=== PATIENT | male | born 1945 | race Caucasian/White ===

== ENCOUNTER → 2016-07-18 | Outpatient (REF) | payer MEDICARE, OTHER | END | disposition home or self-care (01) | LOC: M LAB REF 13:02 | PROVIDERS: ATTEND Internal Medicine Medical Oncology | DX: C02.9 Malignant neoplasm of tongue, unspecified (principal); C78.01 Secondary malignant neoplasm of right lung; Z79.899 Other long term (current) drug therapy ==

== ENCOUNTER → 2016-10-07 | Outpatient (CLI) | payer MEDICARE, BC, OTHER ==
[2016-10-07 11:28] LABS: ANION GAP 6 MEQ/L (8-16); BLOOD UREA NITROGEN 19 MG/DL (7-18); CALCIUM LEVEL 9.3 MG/DL (8.8-10.2); CARBON DIOXIDE LEVEL 30 MEQ/L (21-32); CHLORIDE LEVEL 104 MEQ/L (98-107); CREATININE FOR GFR 0.97 MG/DL (0.70-1.30); GLOMERULAR FILTRATION RATE > 60.0 (>42); GLUCOSE, FASTING 142 MG/DL (83-110); POTASSIUM SERUM 4.4 MEQ/L (3.5-5.1); SODIUM LEVEL 140 MEQ/L (136-145)
--- NOTE | 2016-10-07 22:55 | ECGEPIP ---
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 NO SIGNIFICANT CHANGES Electronically Signed On 10-07-2016 22:55:26 EDT by David Montes
== END ==
LOC: M LAB 10:42
PROVIDERS: ATTEND Ophthalmology
DX: I10 Essential (primary) hypertension (principal)

== ENCOUNTER → 2016-10-09 | Outpatient (REF) | payer MEDICARE, BC, OTHER | LOC: M LAB REF 13:20 | PROVIDERS: ATTEND Internal Medicine Medical Oncology | DX: C02.9 Malignant neoplasm of tongue, unspecified (principal); C78.00 Secondary malignant neoplasm of unspecified lung; Z79.899 Other long term (current) drug therapy ==

== ENCOUNTER → 2016-10-11 | Outpatient (CLI) | payer MEDICARE, BC, OTHER ==
[~2016-10-11] MED LIST: ISOVUE-370 76% 100ML VIAL (Q9967) As Ordered ONE
--- NOTE | 2016-10-11 13:30 | REP ---
CT NECK WITH CONTRAST: HISTORY: Lung carcinoma. CONTRAST: Isovue 370, 75 mL. COMPARISON: 03/21/2015. Increased density is present in the retropharyngeal and pre-epiglottic spaces. There is minimal thickening of the epiglottic and aryepiglottic folds. Stranding is present in the overlying subcutaneous tissue. These findings are consistent with postradiation change that are decreased compared to the previous study. There is no recurrent mass in the region of the left tongue base. The nasopharynx, larynx and subglottic trachea are normal in appearance. The salivary and thyroid glands are normal. Small lymph nodes less than 1 cm in size are present in the internal jugular chains, posterior triangles, submandibular and submental areas. Atherosclerotic calcification is present at the carotid bifurcations. Degenerative change is present in the cervical spine. Scarring is present in the right lung apex. The visualized sinuses are clear. IMPRESSION: 1. There is no recurrent tongue base tumor. 2. Findings consistent with postradiation change that are decreased compared to the previous study. Signed by Claude Longo MD 10/11/2016 01:39 P
--- NOTE | 2016-10-11 17:54 | REP ---
CT CHEST WITH CONTRAST: REASON: History of lung cancer. COMPARISON: Multiple, the latest 06/06/2016. CONTRAST: 100 mL Isovue-370. There is no mediastinal or hilar adenopathy. There are no pleural or pericardial effusions. The imaged upper abdomen is within normal limits. The imaged osseous structures appear unchanged. Evaluation of the lung conde shows an eccentrically calcified spiculated mass density in the right middle lobe. The soft tissue component of which has increased from 4 mm to 6 mm. There is a surgical staple line adjacent to this abnormality. Basilar asymmetric densities are seen status quo. No evidence of a definite new nodule has developed. There are postoperative changes status quo. IMPRESSION: Increased soft-tissue density component seen and an eccentrically calcified nodule right middle lobe as described above. Recurrent malignancy can not be ruled out. PET CT is warranted. Signed by Joshua Cruz DO 10/11/2016 06:01 P
== END ==
LOC: M RAD 12:03
PROVIDERS: ATTEND Internal Medicine Medical Oncology
DX: C34.90 Malignant neoplasm of unspecified part of unspecified bronchus or lung (principal); C79.89 Secondary malignant neoplasm of other specified sites; R91.8 Other nonspecific abnormal finding of lung field; Z92.3 Personal history of irradiation
CPT/HCPCS: 70491; 71260; Q9967

== ENCOUNTER 2016-10-26 06:41 | Day surgery (SDC) | payer MEDICARE, BC, OTHER ==
[~2016-10-26] VITALS: Ht 182.9 cm; Wt 80.0 kg
[2016-10-26] VITALS (7 sets, daily range): BP systolic 103–167; BP diastolic 59–94
[2016-10-26] MEDS ORDERED: CHLO0.12 SSP (07:10)
[2016-10-26] MEDS ORDERED: PREVPST MT (07:10)
[2016-10-26] MEDS ORDERED: OMEP40CA2 PO (07:10)
[2016-10-26] MEDS ORDERED: FLUO-144 TOP (07:10)
[2016-10-26] MEDS ORDERED: DUTA1CAP PO (07:10)
[2016-10-26] MEDS ORDERED: NS 1,000 ML IV SCH (07:51)
--- NOTE | 2016-10-26 08:32 | REP ---
Clinical: Chest pain. Comparison: 04/17/2015. Findings: Mediastinum and cardiac silhouette are within normal limits. Trace right basilar atelectasis cannot be excluded. Underlying chronic changes suggested. Impression: Trace right basilar atelectasis and small pleural effusion cannot be excluded. Signed by Prudencio Donnelly MD 10/26/2016 08:22 A
[2016-10-26] MEDS ORDERED: LATA5OPD OU (08:39)
[2016-10-26 08:43] LABS: BASO % 0.6 % (0.0-1.0); EOS # 0.2 K/mm3 (0.0-0.50); EOS % 3.2 % (0.0-3.0); LARGE UNSTAINED CELL # 0.1 K/mm3 (0.0-0.4); LARGE UNSTAINED CELL % 1.5 % (0.0-4.0); LYMPH # 0.9 K/mm3 (1.5-4.5); LYMPH % 16.4 % (24.0-44.0); MEAN CORPUSCULAR HEMOGLOBIN 33.9 pg (27.0-33.0); MEAN CORPUSCULAR HGB CONC 34.1 g/dl (32.0-36.5); MEAN CORPUSCULAR VOLUME 99.3 fl (80.0-96.0); MONO # 0.4 K/mm3 (0.0-0.8); MONO % 8.5 % (0.0-5.0); NEUTROPHILS # 3.4 K/mm3 (1.8-7.7); NEUTROPHILS % 69.8 % (36.0-66.0); PLATELET COUNT, AUTOMATED 150 k/mm3 (150-450); RED CELL DISTRIBUTION WIDTH 12.6 % (11.5-14.5); WHITE BLOOD COUNT 4.8 K/mm3 (4.0-10.0)
[2016-10-26] MEDS ORDERED: LR 1,000 ML IV SCH ×2 (08:45→13:00)
[2016-10-26 08:49] LABS: INR 0.96
[2016-10-26 08:54] LABS: ANION GAP 6 MEQ/L (8-16); BLOOD UREA NITROGEN 16 MG/DL (7-18); CALCIUM LEVEL 8.7 MG/DL (8.8-10.2); CARBON DIOXIDE LEVEL 30 MEQ/L (21-32); CHLORIDE LEVEL 103 MEQ/L (98-107); CREATININE FOR GFR 0.93 MG/DL (0.70-1.30); GLOMERULAR FILTRATION RATE > 60.0 (>42); GLUCOSE, FASTING 137 MG/DL (83-110); POTASSIUM SERUM 4.3 MEQ/L (3.5-5.1); SODIUM LEVEL 139 MEQ/L (136-145)
[2016-10-26] MEDS ORDERED: LIDOCAINE 1% SDV INJ 30 ML VIAL As Ordered ONE (10:50)
[2016-10-26] MEDS ORDERED: ceFAZolin 2 GM/D5W 50 ML IV BAG (J0690) As Ordered ONE (11:31)
[2016-10-26] MEDS ORDERED: MIDAZOLAM INJ 2 MG/2 ML VIAL (J2250) As Ordered ONE (11:36)
[2016-10-26] MEDS ORDERED: fentaNYL 100 MCG/2 ML INJECTION (J3010) As Ordered ONE (11:36)
[2016-10-26] MEDS ORDERED: PROPOFOL 200 MG/20 ML VIAL As Ordered ONE (11:37)
[2016-10-26] MEDS ORDERED: LIDOCAINE 2% INJ 100 MG/5 ML SDV (FOR ANES.) As Ordered ONE (11:37)
--- NOTE | 2016-10-26 12:00 | ER ---
EMERGENCY ROOM CARDIOLOGY CONSULTATION DATE: 10/26/2016 INDICATION: History of weak spells with event patient monitor showing recurrent pauses. 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 Yesterday he mowed the lawn with a push mower for along half an hour without chest discomfort, shortness of breath, fatigue or dizziness. However, according to his , he has been having episodic profound weakness and was referred to Dr. Montes. His EKG prior to recent cataract extraction, April 20, 2015 showed a sinus bradycardia with marked first-degree AV block of 292 milliseconds. In light of these symptoms and his EKG, an event monitor was placed this past week. I was covering for Dr. Montes and the event monitor service contacted me with a report of the patient having a recurrent prolonged asystolic pauses measuring between 3 and 6.5 seconds. In light of this, the patient was directed to the emergency room for further evaluation. Interestingly, at this point he feels asymptomatic even with his EKG bedside monitor showing rates in the 40s with recurrent asystolic pauses as mentioned above. He has no history of cardiovascular illness, otherwise - in particular, no angina pectoris, heart attack, cardiac enlargement or heart murmur. Had been treated for hypertension in the past but this was discontinued with blood pressure dropping with substantial weight loss with chemotherapy administered for tongue cancer with metastatic disease. Also had a history of hypercholesterolemia, which he claims also improved with his substantial weight loss. He has never had an awareness of his heart action. Denies ever having actual loss of consciousness. No history of shortness of breath. Typically sleeps well without apnea. No history to suggest embolic phenomenon or claudication. No known peripheral venous disease. CORONARY RISK FACTORS: Male gender. Age. History of longstanding hypertension and prior hypercholesterolemia. Life-long nonsmoker. No history of diabetes mellitus or family history of premature coronary heart disease. OTHER KNOWN PAST MEDICAL PROBLEMS: Right ankle fracture repair 1979. Lupus erythematosus 2008 Rx Imuran in the past. Back surgery 2013. 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 05/22 Feeding gastrotomy tube temporarily. Lung wedge resections, [facility] 01/22. Followed by Dr. Burkett, oncology. History of gastroesophageal reflux disease. Benign prostatic hypertrophy with prostatism post TURP 2000. Prior hemorrhoids. Psoriasis. REVIEW OF SYSTEMS: Denies any fever, chills or recent weight loss. No visual problems or hearing problems. Currently is able to swallow normally, his feeding tube was removed sometime ago. No known thyroid dysfunction or other endocrine disorder. Denies cough, sputum or hemoptysis. His metastatic tumor to his lung was a solitary nodule with recent neck and chest CT scanning apparently negative for recurrent disease. Intermittent heartburn and reflux but no other abdominal pains, gastrointestinal (GI) bleeding. Some prostatism but no current hematuria. Shoulder arthralgia. All other systems review is negative. MEDICATIONS: Omeprazole 40 mg daily, multivitamin, vitamin C 1000 mg daily, multivitamin daily. Osteo complex 1 capsule daily, fish oil 1 gram daily, fluocinonide 0.05% cream externally as directed. Chlorhexidine gluconate oral solution 15 mL twice a day as needed gum disease, dutasteride 0.5 mg by mouth daily, latanoprost eye drops 1 drop each eye nightly and Prevident 5000 enamel Pro 1.1 - 5% one dose twice a day. ALLERGIES: None known. PHYSICAL EXAMINATION: CONSTITUTIONAL: Pleasant, bright, alert, well tanned elderly male laying comfortably with the head of bed elevated 30 degrees. Heart rate 48 beats per minute and irregular with prolonged pauses as mentioned. Supine blood pressure 157/88, respiratory 16 per minute, O2 saturation 99% on room air. Afebrile. Height 72 inches, weight 81 kg, body surface area 2.04. EYES: Normal conjunctivae and lids. No xanthelasma. ENT/MOUTH: Teeth in good repair at this time. Normal oral moisture. NECK: Trachea midline. Thyroid not enlarged. Jugular veins were not elevated. CHEST: Normal-appearing chest configuration and chest expansion. Good air entry over both lung conde with no adventitious sounds. CARDIOVASCULAR: Apical impulse medial to the midclavicular line fifth intercostal space. S1, S2 were variable, variable S4 gallop. No audible murmur or rub. Normal carotid upstroke with variable volume related to his arrhythmia. No bruits. Upper extremity, femoral and pedal pulses were all symmetrical and normal. No bipedal edema. No varicose veins. Abdominal aorta was not palpable. No bruits. EXTREMITIES: No clubbing. Peripheral cyanosis or splinter hemorrhages. GI: Well-healed gastric feeding tube scar left upper quadrant. Soft abdomen with no hepatosplenomegaly. Normal bowel sounds. Rectal examination not indicated. MUSCULOSKELETAL: No obvious joint deformities. Normal appearing muscular strength and tone. NEURO/PSYCH: Bright, alert and oriented. Gave a lucid history. Eye, facial, extremity movements were symmetrical and normal. Gait was not assessed at this time. No abnormal movements. INVESTIGATIONS: Portable upright chest x-ray was reviewed independently and shows a heart size within normal limits for this technique. Normal thoracic aorta. Pulmonary vasculature also appeared to be normal. Has no evidence of pleural effusion. Right basilar atelectasis apparently not significantly changed from April 17, 2015. Chest CT scan with contrast October 11, 2016 was reviewed independently and showed normal greater vessels and cardiac chamber sizes and wall thickness. No obvious coronary artery calcification. Electrocardiogram (EKG): Last study available October 07, 2016 showed sinus bradycardia 58 bpm with marked first-degree AV block but was otherwise normal. EKG today did not show any repolarization changes. Bedside monitor shows intermittent sinus pauses measuring between 4 and 6 seconds. Blood work today: Hemoglobin 16.5 with normal white blood cell count and platelet count. PT/INR was 12.9 and 0.98. Normal PTT. Chemistry today showed electrolyte balance with BUN of 16, creatinine 0.9, random glucose 137, magnesium level was normal at 2.1. Troponin I level was less than 0.02. Ultrasensitive TSH done October 09, 2016 was normal. IMPRESSION AND PLAN: 1. Recurrent near syncope: From his description and his EKG findings I suspect this symptom is related to bradyarrhythmia. We have documentation of sinus node dysfunction but no high-grade AV block despite his marked first-degree AV block at rest. 2. Sinus node dysfunction/recurrent sinus pauses: Believed to be a reflection of degenerative conduction tissue disease. No potentially reversible precipitating factor. We have recommended permanent pacemaker implantation. The indication, procedure and potential risks were discussed with the patient who appears to understand and agree. Will proceed as soon as possible under monitored local anesthesia. 3. A first-degree AV block: As mentioned above the condition has been present for some time again believed to be degenerative in nature with no documentation of high-grade AV block to this point. Obviously, permanent pacemaker implantation will prevent him from having any symptomatic AV conduction problems in the future. 4. Essential hypertension: A condition of some chronicity without evidence of end-organ damage. No clinical, radiographic or chest x-ray evidence of cardiomegaly. Following his permanent pacemaker implantation, we will deal with his blood pressure by likely introducing at least low-dose lisinopril. 5. History of hyperlipidemia: We will obtain a fasting lipid profile from his blood work taken earlier today. At this point, no more than a low-fat, low-cholesterol diet will be ordered pending his chemistry results. 6. Metastatic oral pharyngeal cancer: Status post radiation therapy, chemotherapy and wedge pulmonary resection of isolated metastasis. To present there does not appear to be any clinical or radiographic evidence of recurrent disease. Continues to follow with Dr. Burkett, oncology. We made arrangements to proceed with and implantation of his permanent dual-chamber pacemaker as quickly as possible under monitored local anesthesia. He should be able to be discharged home tomorrow. I will be notifying Dr. Montes of his course. Thank you, cc: MD David Torres MD MTDD
[2016-10-26 12:58] LABS: ALBUMIN 3.9 GM/DL (3.2-5.2); ALBUMIN/GLOBULIN RATIO 1.11 (1.00-1.93); ALKALINE PHOSPHATASE 59 U/L (45-117); ALT/SGPT 33 U/L (12-78); AST/SGOT 20 U/L (15-37); BILIRUBIN,DIRECT 0.2 MG/DL (0.0-0.2); BILIRUBIN,TOTAL 0.6 MG/DL (0.2-1.0); CHOLESTEROL LEVEL 215 MG/DL (<200); TOTAL PROTEIN 7.4 GM/DL (6.4-8.2); TRIGLYCERIDES LEVEL 115 MG/DL (<150)
[2016-10-26] MEDS: LISINOPRIL 10 MG TAB PO SCH ×2 (13:00→20:35)
[2016-10-26] MEDS ORDERED: ONDANSETRON 4MG/2ML VIAL (J2405) IV PRN (13:00)
[2016-10-26] MEDS ORDERED: ACETAMINOPH W/CODEINE #3 TAB UD PO PRN (13:00)
--- NOTE | 2016-10-26 13:08 | REP ---
Clinical: Postoperative assessment. Pacemaker placement. Comparison: 10/26/2016. Findings: Status post pacemaker. Leads in satisfactory position. No pneumothorax. Pleuroparenchymal changes involving the right lower lung zone stable. No new acute process. Mediastinum and cardiac silhouette normal. Skeletal structures intact. Impression: Status post pacemaker. No pneumothorax. Chronic pleuroparenchymal changes involving the right mid to lower lung zone. Signed by Prudencio Donnelly MD 10/26/2016 12:58 P
[2016-10-26] MEDS: ACETAMINOPHEN TAB 650MG DOSE (2X325MG) PO PRN ×2 (15:14→20:38)
--- NOTE | 2016-10-26 15:17 | ECGEPIP ---
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
[2016-10-26] MEDS: DOCUSATE SODIUM 100 MG CAP PO SCH (20:35)
[2016-10-26] MEDS: ceFAZolin SOD 1 GM in D5W MINI-BAG PLUS 50 ML IV SCH (20:35)
[2016-10-27] VITALS: BP 117/67
[2016-10-27 04:00] VITALS: BP 126/72
[2016-10-27] MEDS: ceFAZolin SOD 1 GM in D5W MINI-BAG PLUS 50 ML IV SCH (04:02)
[2016-10-27 08:00] VITALS: BP 136/67
--- NOTE | 2016-10-27 08:04 | ECGEPIP ---
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
[2016-10-27] MEDS ORDERED: OMEPRAZOLE 20 MG CAP PO SCH (09:00)
[2016-10-27] MEDS: DOCUSATE SODIUM 100 MG CAP PO SCH (09:03)
[2016-10-27 09:06] VITALS: BP 132/69
[2016-10-27] MEDS: LISINOPRIL 10 MG TAB PO SCH (09:06)
[2016-10-27] MEDS: ACETAMINOPHEN TAB 650MG DOSE (2X325MG) PO PRN (09:07)
--- NOTE | 2016-10-27 10:07 | REP ---
Clinical: Postoperative assessment. Pacemaker placement. Comparison: 10/26/2016. Findings: Pacemaker in stable position. No pneumothorax. Lung cnode demonstrate chronic changes similar to prior examination. Mediastinum and cardiac silhouette are stable and within normal limits. Skeletal structures intact. Impression: Chronic stable changes. No pneumothorax. Signed by Prudencio Donnelly MD 10/27/2016 09:58 A
[2016-10-27] MEDS ORDERED: LISI10TA4 PO (11:43)
[2016-10-27] MEDS ORDERED: ATOR40TA PO (11:43)
--- NOTE | 2016-10-27 11:54 | IPN ---
DATE: 10/27/2016 CARDIOLOGY PROGRESS NOTE SUBJECTIVE: Claims not to have had much in the way of incisional discomfort overnight. Has been up in the room without chest discomfort, shortness of breath or dizziness. OBJECTIVE: Pleasant, bright, elderly male of medium body build, lay comfortably with the head of bed elevated 30 degrees. Well tanned. Heart rate 60 beats per minute and regular, blood pressure 150/80 supine, 145/80 sitting with legs dependent, respiratory rate 16 per minute, oxygen saturation 98% on room air. Afebrile. Weight 176 pounds. No pallor or cyanosis. Trachea midline. Normal chest configuration and expansion. Well-healing left subclavian pacemaker incision, dressing was changed today. Good air entry over both lung conde with no abnormal pulmonary adventitious sounds. Apical impulse normal position. S1 normal, S2 paradoxically split due to right ventricular pacing, S4 gallop but no murmur or rub. Soft abdomen. No dependent edema. court recording monitor: This has shown consistent dual-chamber pacer function programmed DDD with atrial pacing, alternating with spontaneous sinus rhythm that is sensed, appropriate atrial tracking and consistent ventricular pacing. EKG: Tracing this morning shows consistent atrial and ventricular pacing at 60 beats per minute. Normal frontal axis with left bundle branch block, QRS configuration in keeping with right ventricular RV outflow tract stimulation. Appearance is unchanged from yesterday's tracing postoperatively. PA left lateral chest x-ray: Study performed this morning was reviewed independently and shows a stable lead position with no pneumothorax. LABORATORY DATA: We added a fasting lipid profile to his blood work yesterday, which showed a total cholesterol of 215, LDL of 149, HDL 43, triglyceride 115. Liver function studies were normal. IMPRESSION/PLAN: 1. Essential hypertension: Though he has no symptoms or signs of congestion, no EKG or chest x-ray evidence of hypertensive heart disease, his blood pressure does warrant medical therapy. We have started him on low-dose lisinopril and dosage adjustment will be left to Dr. 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 2. Recurrent near syncope/sinus node dysfunction with sinus pauses: At present, has been free of any further dizzy spells or weakness. His pacemaker function is appropriate. EKG, chest x-ray show stable lead position. Complete pacer interrogation was performed today showing excellent intracardiac electrograms and pacing thresholds. We were able to reprogram his atrial auto confirm function on to further prolong battery longevity, which is estimated at this point at 11 years. 3. Abnormal EKG/first-degree AV block: Has had well documented marked first-degree AV block of 290 milliseconds. At this point, is consistently being paced in the ventricle without problem. 4. Hypercholesterolemia: Despite his medium body build and dietary measures and regular activity, continues to have a degree of hypercholesterolemia. We will resume atorvastatin 40 mg nightly. At this point, I believe it is safe for him to be discharged home. He will be given a followup appointment for wound check and staple removal in our office in approximately 7-10 days. He has been cautioned to avoid getting his incision wet and perform only light activities of daily living with his left arm until his latia are removed. Subsequent cardiology followup will be with Dr. Montes. His medications will include lisinopril 10 mg twice a day, omeprazole 40 mg nightly, atorvastatin 40 mg nightly. He will resume his vitamin C 8 one gram daily and multivitamin and Os-Bishnu Complex one tablet daily with fish oil 1 gram daily, fluocinonide 0.05% cream for his psoriasis as directed and dutasteride 0.5 mg daily with chlorhexidine gluconate oral wash 15 mL twice a day as necessary for gum disease. He has been encouraged to contact us promptly for any abnormal swelling, redness or discharge from his incision.
--- NOTE | 2016-10-27 19:49 | ECGEPIP ---
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
--- NOTE | 2016-10-28 07:42 | RO ---
DATE OF PROCEDURE: 10/26/2016 PREOPERATIVE DIAGNOSES: 1. Recurrent near syncope with recurrent prolonged sinus pauses - sinus node dysfunction. 2. First-degree AV block. POSTOPERATIVE DIAGNOSES: 1. Recurrent near syncope with recurrent prolonged sinus pauses - sinus node dysfunction. 2. First-degree AV block. PROCEDURE: Implantation of permanent dual-chamber pacemaker implant. TENTERER: Dr. Devante Rebolledo TYPE OF ANESTHESIA: Monitored local anesthesia. DESCRIPTION OF PROCEDURE: The patient in the fasting state, having received Ancef 2 grams IV premedication and signing informed consent, he was taken to the operating theater. Numerous skin electrodes were applied to facilitate continuous electrocardiographic monitoring. The left subclavian region was prepped and draped in usual fashion and the skin was infiltrated with 1% Xylocaine. The left axillary vein was catheterized using the micropuncture technique. A 5 cm linear incision was made several centimeters below and parallel to the left clavicle. Dissection was carried down to the level of the pectoralis fascia and a pocket was fashioned below the level of the incision line. Two bipolar screw-in active fixation steroid eluding pacing leads were then positioned to the high right atrial appendage and high right ventricular septum under fluoroscopic and electrocardiographic control. The ventricular lead ([employer] model #LPA 1200 M/580, serial #[id number]) measurements were: Stimulation threshold 0.5, V/0.4 mms/impedance 687 ohms. The capital R wave amplitude measured 8.1 mV. The atrial lead ([employer] - model [id number]/[id number], serial #[id number]). Measurements were: Stimulation threshold 1.57, V/0.4 mms/[id number] ohms. The P wave amplitude measured 2.2 mV. These leads were secured in position with sleeves sutured at their insertion site. They were then connected to a dual-chamber pulse generator ([employer] - [employer]urity model #QI3908 , serial #[id number] - MRI compatible) and appropriate DDD pacing was documented. The pulse generator was placed in the pocket and secured in position with a suture through the upper right-hand corner of the epoxy header. The subcutaneous tissues were approximated using a running chromic suture and the skin was closed using latia. A dry dressing was applied and the patient was returned to recovery room in good condition. No apparent complications. Estimated blood loss less than 50 small mL. Postoperative portable upright chest x-ray showed good lead position with no pneumothorax. His postoperative EKG showed consistent AV sequentially paced rhythm at 60 bpm. Our plan will be to monitor him overnight and he will receive an additional three doses of Ancef IV every 8 hours. Followup PA and left lateral chest x-ray and EKG will be obtained in the morning but we anticipate his discharge home prior to noon. cc: David Montes MD
[2016-11-19] MEDS ORDERED: [UNRECOGNIZED DRUG - OTHER] OS (16:52)
[2016-11-19] MEDS ORDERED: ALPH0.156 OU (16:52)
== END 2016-10-27 13:02 | disposition home or self-care (01) ==
LOC: M ED 08:31 → M SDC 08:32 → M PCU 13:33 → M SDC 10-27 13:02
PROVIDERS: ATTEND Internal Medicine Cardiovascular Disease
DX: R55 Syncope and collapse (principal); I49.5 Sick sinus syndrome; I44.0 Atrioventricular block, first degree; I10 Essential (primary) hypertension; K21.9 Gastro-esophageal reflux disease without esophagitis; R94.31 Abnormal electrocardiogram [ECG] [EKG]; Z86.39 Personal history of other endocrine, nutritional and metabolic disease; N40.0 Benign prostatic hyperplasia without lower urinary tract symptoms; L40.9 Psoriasis, unspecified; Z79.899 Other long term (current) drug therapy; Z85.118 Personal history of other malignant neoplasm of bronchus and lung; Z85.810 Personal history of malignant neoplasm of tongue; Z92.21 Personal history of antineoplastic chemotherapy; Z92.3 Personal history of irradiation
CPT/HCPCS: 33208; 71010; 71020; 76000; 80048; 80061; 80076; 82550; 82553; 83735; 84484; 85025; 85610; 85730; 93005; 93041; 94760; 96360; 96361; 96374; 99285; C1785; C1898; J0690; J2250; J3010

== ENCOUNTER → 2016-11-28 | Day surgery (SDC) | payer MEDICARE, BC, OTHER ==
[~2016-11-28] VITALS: Ht 182.9 cm; Wt 82.6 kg
[~2016-11-28] MED LIST changes: +ACETYLCHOLINE OPHTH SOLN 1% 2ML (MIOCHOL-E) As Ordered ONE; +ALPH0.156 OU; +ATOR40TA PO; +BALANCED SALT IRRIGATION SOL 500ML GLASS BOTTLE (FOR OR EYE COMPOUND) As Ordered ONE; +BALANCED SALT IRRIGATION SOLUTION 500ML BAG (FOR OR EYE MACHINE) As Ordered ONE; +CEFUROXIME 1MG/0.1ML INTRACAMERAL INJ As Ordered ONE; +CHLO0.12 SSP; +DUOVISC (0.50ML VISCOAT/0.55ML PROVISC) OPHTH KIT As Ordered ONE; +DUTA1CAP PO; +FLUO-144 TOP; -ISOVUE-370 76% 100ML VIAL (Q9967) As Ordered ONE; +LATA5OPD OU; +LIDOCAINE 0.75%/EPINEPHRINE 0.025% IN BSS 1ML SYR INTRACAMERAL (OR ONLY) As Ordered ONE; +LIDOCAINE 4% INJ 5 ML AMP As Ordered ONE; +LISI10TA4 PO; +LR 500 ML IV ONE; +MIDAZOLAM INJ 2 MG/2 ML VIAL (J2250) As Ordered ONE; +OFLOXACIN 0.3 % (OCUFLOX) OPTH SOL 5ML OD ONE; +OMEP40CA2 PO; +PHENYLEPHRINE 2.5% OPHTH SOL 2ML OD ONE; +POVIDONE-IODINE 5% OPHTH PREP SOL 30ML As Ordered ONE; +PREVPST MT; +PROPARACAINE 0.5% OPHTH SOL 15ML OD ONE; +TROPICAMIDE 1% OPHTH SOLN 2ML OD ONE; +[UNRECOGNIZED DRUG - OTHER] OS; +fentaNYL 100 MCG/2 ML INJECTION (J3010) As Ordered ONE
[2016-11-28 12:15] VITALS: BP 135/71
--- NOTE | 2016-11-29 12:23 | RO ---
DATE OF PROCEDURE: 11/28/2016 PREOPERATIVE DIAGNOSIS: Visually significant nuclear sclerotic cataract right eye. POSTOPERATIVE DIAGNOSIS: Visually significant nuclear sclerotic cataract right eye. PROCEDURE: Cataract extraction with use of phacoemulsification, and placement of intraocular lens, AU00T0, 21.0 diopter right eye. SURGEON: Robin Esparza DO [employer] OPERATOR: ANESTHESIA: Local with monitored anesthesia care (MAC). COMPLICATIONS: None. POSTOPERATIVE CONDITION: Stable. INDICATION FOR SURGERY: Blurred vision right eye affecting patient's activities of daily living. DESCRIPTION OF PROCEDURE: The patient was seen in the preoperative area and properly identified. The correct operative eye was identified and marked. Attention was turned to that eye. The patient received topical antibiotics in the preoperative area. The patient then received topical dilating drops consisting of Tropicamide and Phenylephrine. The patient was then transferred to the operating room. The correct side was re-identified. The patient received topical anesthetics and antibiotics on the surface of the eye. The eye was prepped and draped in a sterile fashion. The upper and lower eyelids were isolated with Tegaderm tape, and the lids were held open with an adjustable speculum. Using a sideport blade, a paracentesis incision was made. Intraocular preservative-free lidocaine was then injected into the anterior chamber. Viscoelastic was then injected into the anterior chamber through the paracentesis. Using a 2.65 mm sharp-tipped keratome, the anterior chamber was entered via a temporal clear corneal incision. A continuous curvilinear capsulorrhexis was created with the aid of a 26g cystotome and utrata forceps. Hydrodissection was performed with balanced salt solution (BSS) on a blunt cannula until the nucleus was freely mobile. The crystalline lens was phacoemulsified and aspirated. Additional cohesive viscoelastic was placed into the capsular bag to deepen it. An AU00T0 21.0D lens was placed into the capsular bag and confirmed by visualizing the continuous curvilinear capsulorrhexis. Additional irrigation and aspiration was used to remove cortical material and remaining viscoelastic. The clear corneal incision was hydrated with BSS on a blunt cannula. The lens was well positioned. The incisions were then tested for leaks and found to be negative. The eye was then palpated for appropriate pressure and adjusted accordingly with BSS. The eyelid speculum was carefully removed. A shield was placed over the eye. The patient tolerated the procedure well and was discharged to the recovery unit in a stable condition. AMPARO
== END | disposition home or self-care (01) ==
LOC: M SDC 07:42
PROVIDERS: ATTEND Ophthalmology
DX: H25.11 Age-related nuclear cataract, right eye (principal); I10 Essential (primary) hypertension; E78.5 Hyperlipidemia, unspecified; N40.0 Benign prostatic hyperplasia without lower urinary tract symptoms; K21.9 Gastro-esophageal reflux disease without esophagitis; H40.9 Unspecified glaucoma; L40.9 Psoriasis, unspecified; Z95.0 Presence of cardiac pacemaker; M32.9 Systemic lupus erythematosus, unspecified; G47.9 Sleep disorder, unspecified; Z79.899 Other long term (current) drug therapy
CPT/HCPCS: 66984; J2250; J3010; V2632

== ENCOUNTER → 2017-01-21 | Outpatient (CLI) | payer MEDICARE, BC, OTHER ==
[~2017-01-21] MED LIST changes: -ACETYLCHOLINE OPHTH SOLN 1% 2ML (MIOCHOL-E) As Ordered ONE; -ATOR40TA PO; +ATOR40TA75 PO; -BALANCED SALT IRRIGATION SOL 500ML GLASS BOTTLE (FOR OR EYE COMPOUND) As Ordered ONE; -BALANCED SALT IRRIGATION SOLUTION 500ML BAG (FOR OR EYE MACHINE) As Ordered ONE; -CEFUROXIME 1MG/0.1ML INTRACAMERAL INJ As Ordered ONE; -DUOVISC (0.50ML VISCOAT/0.55ML PROVISC) OPHTH KIT As Ordered ONE; -LIDOCAINE 0.75%/EPINEPHRINE 0.025% IN BSS 1ML SYR INTRACAMERAL (OR ONLY) As Ordered ONE; -LIDOCAINE 4% INJ 5 ML AMP As Ordered ONE; -LR 500 ML IV ONE; -MIDAZOLAM INJ 2 MG/2 ML VIAL (J2250) As Ordered ONE; -OFLOXACIN 0.3 % (OCUFLOX) OPTH SOL 5ML OD ONE; -PHENYLEPHRINE 2.5% OPHTH SOL 2ML OD ONE; -POVIDONE-IODINE 5% OPHTH PREP SOL 30ML As Ordered ONE; -PROPARACAINE 0.5% OPHTH SOL 15ML OD ONE; -TROPICAMIDE 1% OPHTH SOLN 2ML OD ONE; -fentaNYL 100 MCG/2 ML INJECTION (J3010) As Ordered ONE
--- NOTE | 2017-01-21 09:01 | REP ---
CT of the chest without IV contrast for follow up of right middle lobe lung nodule. Comparisons are 10/11/2016 and 06/06/2016. The patients known right middle lobe spiculated lung nodule containing an eccentric calcification is again identified on all studies. Re measuring the soft tissue component of this nodule on the images at lung windowing results in the following measurements: 8 mm 06/06/2016 9 mm 10/11/2016 10 mm 01/21/2017 Re measuring the soft tissue component of this nodule on the images at soft tissue windowing results in the following measurements: 7 mm 06/06/2016 8 mm 10/11/2016 9 mm 01/21/2017 There are no other nodules or masses. There are no acute infiltrates or effusions. There is a chronic linear scar in the right lower lobe accompanied by surgical staple line. This is unchanged. There is no mediastinal or axillary adenopathy. The study is insensitive for hilar adenopathy in the absence of IV contrast. The thoracic aorta is unremarkable. Cardiac size is normal. There is a pacemaker. The visualized upper abdominal contents are unremarkable. There is no adrenal mass. Impression: Right middle lobe lung nodule with an eccentric calcification and an adjacent surgical staple line. Measurements of the soft tissue component are described in the body of the report. Signed by Fabian Valdez MD 01/21/2017 08:52 A
== END ==
LOC: M RAD 06:59
PROVIDERS: ATTEND Internal Medicine Medical Oncology
DX: R91.1 Solitary pulmonary nodule (principal)

== ENCOUNTER → 2017-01-27 | Outpatient (REF) | payer MEDICARE, BC, OTHER | LOC: M LAB REF 12:48 | PROVIDERS: ATTEND Internal Medicine Medical Oncology | DX: C34.90 Malignant neoplasm of unspecified part of unspecified bronchus or lung (principal); Z79.899 Other long term (current) drug therapy ==

== ENCOUNTER → 2017-01-28 | Outpatient (CLI) | payer MEDICARE, BC, OTHER ==
--- NOTE | 2017-01-28 17:13 | REP ---
PET/CT: History: Evaluate right lung nodules. Enlarging on serial CT. 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 Comparisons: Prior PET-CT is are reviewed from 03/27/2016 and 12/07/2015. CT scans of the chest are reviewed from 01/21/2017 and 10/11/2016. TECHNIQUE: 54 minutes following the intravenous injection of a 10.6 mCi dose of F-18 FDG, three-dimensional PET scintigraphy is acquired from the skull base to the proximal thighs. Triplanar noncontrast CT scanning is acquired through the same anatomic range for attenuation correction, and image registration with scan parameters optimized to minimize radiation exposure to the patient. PET scintigraphy and CT datasets were fused and displayed on a workstation with multiplanar and projection display capability. PET/CT Findings: The gradually enlarging nodule adjacent to the skin latia in the right middle lobe is hypermetabolic. Maximum standard uptake value is 5.9. No other abnormal thoracic hypermetabolic uptake is seen. No abnormal head and neck uptake is seen. No abdominal or pelvic hypermetabolic uptake is appreciated. Impression: Suspicious hypermetabolic uptake in the gradually enlarging right middle lobe nodule, 5.9. Recurrent or metastatic malignancy must be suspected. Signed by Maxime Hernandez MD 01/29/2017 08:01 A
== END ==
LOC: M PLARAD 14:09
PROVIDERS: ATTEND Internal Medicine Medical Oncology
DX: R91.8 Other nonspecific abnormal finding of lung field (principal); Z85.828 Personal history of other malignant neoplasm of skin
CPT/HCPCS: 78815; A9552

== ENCOUNTER → 2017-03-28 | Outpatient (REF) | payer MEDICARE, BC, OTHER | LOC: M LAB REF 16:31 | PROVIDERS: ATTEND Otolaryngology | DX: D10.1 Benign neoplasm of tongue (principal) ==

== ENCOUNTER → 2017-06-24 | Outpatient (REF) | payer MEDICARE, BC, OTHER ==
[2017-06-24 14:30] LABS: VITAMIN B12 LEVEL 762 PG/ML (247-911)
== END ==
LOC: M LAB REF 13:23
DX: C01 Malignant neoplasm of base of tongue (principal); E03.9 Hypothyroidism, unspecified
CPT/HCPCS: 84443

== ENCOUNTER 2017-07-03 09:33 | Day surgery (SDC) | payer MEDICARE, BC, OTHER ==
[2017-07-03] MEDS ORDERED: fentaNYL 100 MCG/2 ML INJECTION (J3010) As Ordered (12:22)
[2017-07-03] MEDS ORDERED: MIDAZOLAM INJ 2 MG/2 ML VIAL (J2250) As Ordered (12:22)
[2017-07-03] MEDS: PHENYLEPHRINE 2.5% OPHTH SOL 2ML OS (12:52)
[2017-07-03] MEDS: PROPARACAINE 0.5% OPHTH SOL 15ML OS (12:52)
[2017-07-03] MEDS: TROPICAMIDE 1% OPHTH SOLN 2ML OS (12:53)
[2017-07-03] MEDS: OFLOXACIN 0.3 % (OCUFLOX) OPTH SOL 5ML OS (12:53)
[2017-07-03] MEDS: POVIDONE-IODINE 5% OPHTH PREP SOL 30ML As Ordered (14:13)
[2017-07-03] MEDS: DUOVISC (0.50ML VISCOAT/0.55ML PROVISC) OPHTH KIT As Ordered (14:13)
[2017-07-03] MEDS: LIDOCAINE 0.75%/EPINEPHRINE 0.025% IN BSS 1ML SYR INTRACAMERAL (OR ONLY) As Ordered (14:13)
[2017-07-03] MEDS: CEFUROXIME 1MG/0.1ML INTRACAMERAL INJ As Ordered (14:13)
[2017-07-03] MEDS: BALANCED SALT IRRIGATION SOLUTION 500ML BAG (FOR OR EYE MACHINE) As Ordered (14:13)
[2017-07-03] MEDS: ACETYLCHOLINE OPHTH SOLN 1% 2ML (MIOCHOL-E) As Ordered (14:13)
== END 2017-07-03 15:20 | disposition home or self-care (01) ==
LOC: M SDC 09:33
DX: H25.12 Age-related nuclear cataract, left eye (principal); I10 Essential (primary) hypertension; E78.4 Other hyperlipidemia; Z95.0 Presence of cardiac pacemaker; Z79.899 Other long term (current) drug therapy; K21.9 Gastro-esophageal reflux disease without esophagitis; M32.10 Systemic lupus erythematosus, organ or system involvement unspecified; Z85.118 Personal history of other malignant neoplasm of bronchus and lung; Z92.3 Personal history of irradiation; Z92.21 Personal history of antineoplastic chemotherapy
CPT/HCPCS: 66984

== ENCOUNTER → 2017-08-04 | Outpatient (CLI) | payer MEDICARE, BC, OTHER ==
[~2017-08-04] MED LIST changes: -ALPH0.156 OU; -ATOR40TA75 PO; -CHLO0.12 SSP; -DUTA1CAP PO; -FLUO-144 TOP; +ISOVUE-370 76% 100ML VIAL (Q9967) As Ordered; -LATA5OPD OU; -LISI10TA4 PO; -OMEP40CA2 PO; -PREVPST MT; -[UNRECOGNIZED DRUG - OTHER] OS
== END ==
LOC: M RAD 09:00
DX: C01 Malignant neoplasm of base of tongue (principal); J90 Pleural effusion, not elsewhere classified; Z90.2 Acquired absence of lung [part of]; Z92.3 Personal history of irradiation
CPT/HCPCS: Q9967

== ENCOUNTER → 2018-01-26 | Outpatient (CLI) | payer MEDICARE, BC, OTHER | LOC: M RAD 07:02 | DX: C10.9 Malignant neoplasm of oropharynx, unspecified (principal); C78.01 Secondary malignant neoplasm of right lung; Z92.3 Personal history of irradiation; Z90.2 Acquired absence of lung [part of]; J90 Pleural effusion, not elsewhere classified | CPT/HCPCS: Q9967 ==

== ENCOUNTER 2018-03-26 10:36 | Day surgery (SDC) | payer MEDICARE, BC, OTHER ==
[2018-03-26] MEDS ORDERED: LR 1,000 ML IV ×3 (10:45→14:00)
[2018-03-26] MEDS ORDERED: dexameTHASONE 4 MG/ML 1ML VIAL (J1100) As Ordered ×2 (11:12→12:52)
[2018-03-26] MEDS ORDERED: MIDAZOLAM INJ 2 MG/2 ML VIAL (J2250) As Ordered (12:52)
[2018-03-26] MEDS ORDERED: ROCURONIUM BROMIDE 50 MG/5 ML VIAL As Ordered (12:52)
[2018-03-26] MEDS ORDERED: ePHEDrine SULFATE 25 MG/5 ML(5MG/ML) SYRINGE As Ordered (12:52)
[2018-03-26] MEDS ORDERED: fentaNYL 100 MCG/2 ML INJECTION (J3010) As Ordered (12:52)
[2018-03-26] MEDS ORDERED: PROPOFOL 200 MG/20 ML VIAL As Ordered (12:52)
[2018-03-26] MEDS ORDERED: LIDOCAINE 2% INJ 100 MG/5 ML SDV (FOR ANES.) As Ordered (12:52)
[2018-03-26] MEDS ORDERED: ONDANSETRON 4MG/2ML VIAL (J2405) As Ordered (13:04)
[2018-03-26] MEDS ORDERED: GLYCOPYRROLATE INJ 0.2 MG/ML 2 ML VIAL As Ordered (13:05)
[2018-03-26] MEDS ORDERED: NEOSTIGMINE 10 MG/10 ML VIAL (J2710) As Ordered (13:05)
[2018-03-26] MEDS ORDERED: ONDANSETRON 4MG/2ML VIAL (J2405) IV (13:45)
[2018-03-26] MEDS ORDERED: METOCLOPRAMIDE INJ 10MG/2ML VIAL (J2765) IV (13:45)
[2018-03-26] MEDS ORDERED: fentaNYL 100 MCG/2 ML INJECTION (J3010) IV (13:45)
== END 2018-03-26 15:00 | disposition home or self-care (01) ==
LOC: M SDC 10:36
DX: D10.1 Benign neoplasm of tongue (principal); H40.9 Unspecified glaucoma; K21.9 Gastro-esophageal reflux disease without esophagitis; M32.9 Systemic lupus erythematosus, unspecified; I49.9 Cardiac arrhythmia, unspecified; I10 Essential (primary) hypertension; E78.5 Hyperlipidemia, unspecified; M12.9 Arthropathy, unspecified; L40.9 Psoriasis, unspecified; C34.90 Malignant neoplasm of unspecified part of unspecified bronchus or lung; N40.0 Benign prostatic hyperplasia without lower urinary tract symptoms; Z79.899 Other long term (current) drug therapy; Z95.0 Presence of cardiac pacemaker; Z92.21 Personal history of antineoplastic chemotherapy; Z92.3 Personal history of irradiation; Z96.1 Presence of intraocular lens
CPT/HCPCS: 41112

== ENCOUNTER → 2018-07-22 | Outpatient (CLI) | payer MEDICARE, BC, OTHER ==
[~2018-07-22] MED LIST changes: +ALPH0.156 OU; +ATOR40TA75 PO; +CHLO0.12 SSP; +DUTA1CAP PO; +FLUO-144 TOP; +FLUO1SOL EX; +IBUP200T45 PO; -ISOVUE-370 76% 100ML VIAL (Q9967) As Ordered; +ISOVUE-370 76% 100ML VIAL (Q9967) As Ordered ONE; +LATA5OPD OU; +LISI10TA4 PO; +OMEP40CA2 PO; +PREVPST MT; +ZIOPTAN OU; +ZOVI5CRE4 EX; +[UNRECOGNIZED DRUG - OTHER] OS
--- NOTE | 2018-07-22 11:24 | REP ---
CT of the chest with IV contrast: Comparison is 01/26/2018. The patient has a history of squamous cell carcinoma of the head and neck. Additionally, the patient has a history of right middle lobe lobectomy. The right upper lobe and right lower lobe remain. There are surgical clips and parenchymal scarring paramediastinal in the right hemithorax, unchanged. There is a surgical staple line anteriorly inferiorly in the remaining right upper lobe, unchanged. There is a surgical staple line in the right lower lobe, unchanged. There is fibro linear scarring in the right lower lobe, unchanged. There are no lung masses or nodules. There is a small right pleural effusion versus pleural thickening, unchanged. There is no hilar lymph node enlargement. There is no mediastinal lymph node enlargement. There is no axillary lymph node enlargement. The thoracic aorta is unremarkable. Cardiac size is normal. Pacemaker entering from the left is again identified. The visualized upper abdominal contents are unremarkable. There is no adrenal mass. Impression: No lung nodules or masses. No adenopathy. Small pleural effusion versus pleural thickening posteriorly on the right, unchanged. Postsurgical changes in the right hemithorax, unchanged. No significant interval change. Electronically Signed by Fabian Valdez MD 07/22/2018 11:17 A
--- NOTE | 2018-07-22 13:39 | REP ---
CT NECK WITH CONTRAST: HISTORY: Squamous cell carcinoma. CONTRAST: Isovue-370, 75 mL. Increased density is present in the retropharyngeal and preepiglottic space. There is minimal thickening of the epiglottis. These findings are consistent with post-radiation change. There is no recurrent left tongue base mass. The nasopharynx, larynx and subglottic trachea rare normal in appearance. The salivary and thyroid glands are normal in size and density. Small lymph nodes less than 1 cm in size are present in the internal jugular chains, posterior triangles, submandibular and submental areas. Atherosclerotic calcification is present at the carotid bifurcations. Degenerative change is present in the cervical spine. Scarring is present in the right lung apex. The visualized sinuses are clear. Minimal mucosal thickening is present in the right mastoid air cells. IMPRESSION: 1. There is no recurrent left tongue base tumor. 2. Findings consistent with post-radiation change. Electronically Signed by Claude Longo MD 07/22/2018 01:49 P
== END ==
LOC: M RAD 09:30
PROVIDERS: ATTEND Internal Medicine Medical Oncology
DX: R91.8 Other nonspecific abnormal finding of lung field (principal); Z95.0 Presence of cardiac pacemaker; Z90.2 Acquired absence of lung [part of]; Z92.3 Personal history of irradiation
CPT/HCPCS: 70491; 71260; Q9967

== ENCOUNTER → 2019-01-27 | Outpatient (CLI) | payer MEDICARE, BC, OTHER ==
[~2019-01-27] MED LIST changes: +LATA0.0013 OU; -LATA5OPD OU
--- NOTE | 2019-01-27 13:22 | REP ---
REASON: Followup. COMPARISON: All chest CTs were reviewed, the latest 07/22/2018. CONTRAST: 100 mL Isovue 370. There is no mediastinal or hilar adenopathy. Right pleural thickening status quo. There are no pleural or pericardial effusions. The imaged upper abdomen is again seen to be within normal limits. The imaged osseous structures show no acute changes. Evaluation of the lung conde shows stable chronic changes and postsurgical changes. No new abnormal nodules, masses, or opacities have developed. There is evidence of mild cylindrical bronchiectasis. IMPRESSION: No acute disease. Findings as described above. Electronically Signed by Joshua Cruz DO 01/27/2019 02:02 P
--- NOTE | 2019-01-27 14:27 | REPVR ---
EXAM: CT Neck With Contrast EXAM DATE/TIME: 01/27/2019 10:40 AM CLINICAL HISTORY: 73 years old, male; Condition or disease; Cancer; Other: Head neck; Additional info: Head/neck CA TECHNIQUE: Imaging protocol: Axial computed tomography images of the neck with intravenous contrast. Radiation optimization: All CT scans at this facility use at least one of these dose optimization techniques: automated exposure control; mA and/or kV adjustment per patient size (includes targeted exams where dose is matched to clinical indication); or iterative reconstruction. Contrast material: ISOVUE 370; Contrast volume: 100 ml; Contrast route: IV; COMPARISON: CT Neck with contrast 07/22/2018 9:56 AM FINDINGS: Brain: The visualized intracranial structures appear grossly unremarkable. Sinuses: Minor chronic mucosal disease of the maxillary sinuses. The visualized paranasal sinuses and air cells are otherwise clear. Nasopharynx: Normal. Oropharynx: No mass is evident at the base of the tongue. Hypopharynx: Normal. Larynx: Epiglottis appears unchanged. Retropharyngeal space: The appearance of mild thickening of the retropharyngeal and pre-epiglottic soft tissues is fairly similar, compatible with radiation change as previously noted. Submandibular/Parotid glands: The submandibular and parotid glands appear unremarkable. Thyroid: The thyroid gland appears unremarkable. Lymph nodes: Subcentimeter short axis lymph nodes are again present, without pathologic lymphadenopathy identified. Trachea: The airway is patent. No parapharyngeal or paratracheal mass or collection is identified. Lungs: There is again some scarring and likely suture at the right lung apex. Vasculature: Atherosclerotic vascular calcifications are again present. Mastoid air cells: The mastoid air cells are clear. Bones/joints: No apical pneumothorax is identified. The temporomandibular joints are normally aligned. Degenerative changes again involve the spine. Soft tissues: A left-sided cardiac pacemaker is again present. IMPRESSION: Stable appearance of the neck as compared with 07/22/18, without recurrent disease identified. Electronically signed by: Ten Ramirez On 01/27/2019 14:27:33 PM
== END ==
LOC: M RAD 09:58
PROVIDERS: ATTEND Internal Medicine Medical Oncology
DX: C76.0 Malignant neoplasm of head, face and neck (principal); J32.0 Chronic maxillary sinusitis
CPT/HCPCS: 70491; 71260; Q9967

== ENCOUNTER → 2019-05-04 | Outpatient (REF) | payer MEDICARE, OTHER ==
[~2019-05-04] MED LIST changes: -ISOVUE-370 76% 100ML VIAL (Q9967) As Ordered ONE; -OMEP40CA2 PO; +OMEP40CA97 PO
[2019-05-04 12:27] LABS: CHOLESTEROL RISK RATIO 4.652 (<5); PROSTATIC SPECIFIC AG MONITOR 0.8 NG/ML (< 4.00)
== END ==
LOC: M LAB REF 10:42
PROVIDERS: ATTEND Family Medicine
DX: N40.0 Benign prostatic hyperplasia without lower urinary tract symptoms (principal); I10 Essential (primary) hypertension

== ENCOUNTER → 2019-07-30 | Outpatient (CLI) | payer MEDICARE, BC, OTHER ==
[~2019-07-30] MED LIST changes: -DUTA1CAP PO; +DUTA1CAP2 PO; +ISOVUE-370 76% 100ML VIAL (Q9967) As Ordered ONE
--- NOTE | 2019-07-30 13:30 | REP ---
CT of the chest with IV contrast: Comparisons are 01/27/2019 and 07/22/2089. The the patient has a history of squamous cell carcinoma of the head and neck. He has had a right middle lobectomy. There are surgical clips in the right hilus, unchanged. There is a surgical staple line anteriorly and inferiorly in the right upper lobe, unchanged. There is a surgical staple line in the right lower lobe , unchanged. There is stable pleural thickening posteroinferiorly in the right hemithorax, unchanged. There is stable curvilinear parenchymal scarring in the right lower lobe and anterior to the right hilus, unchanged. There are no lung masses or nodules. There are no infiltrates or pleural effusions. There is no mediastinal or hilar lymph node enlargement. There is no axillary lymph node enlargement. The thoracic aorta is unremarkable. The cardiac size is normal. There is a pacemaker. There is carrot coronary artery calcified vascular atheroma. There is no pericardial effusion. There are no lytic, blastic or destructive skeletal changes. Upper abdomen: The visualized areas of the liver, gallbladder, pancreas and spleen are unremarkable. The visualized portions of the adrenals are unremarkable. The renal upper poles are barely visualized. Impression: There are no lung nodules or masses. There is no adenopathy. No pleural effusions or infiltrates. There are stable postsurgical findings in the right hemithorax as described. Electronically Signed by Fabian Valdez MD 07/30/2019 01:22 P
--- NOTE | 2019-07-30 15:52 | REPVR ---
PROCEDURE INFORMATION: Exam: CT Neck With Contrast Exam date and time: 07/30/2019 12:19 PM Age: 74 years old Clinical indication: Restaging head/ neck CA TECHNIQUE: Imaging protocol: Computed tomography images of the neck with intravenous contrast. Radiation optimization: All CT scans at this facility use at least one of these dose optimization techniques: automated exposure control; mA and/or kV adjustment per patient size (includes targeted exams where dose is matched to clinical indication); or iterative reconstruction. Contrast material: ISOVUE 370; Contrast volume: 75 ml; Contrast route: IV; COMPARISON: CT Neck with contrast 01/27/2019 10:44 AM FINDINGS: Pharynx: Unremarkable. Larynx: Unchanged appearance of mild thickening of the pre epiglottic soft tissues, most likely reflective of chronic post treatment changes. Epiglottis is otherwise unremarkable. Retropharyngeal space: Unremarkable. Submandibular/Parotid glands: Unremarkable. Thyroid: Unremarkable. No enlarged or calcified nodules. Lymph nodes: No lymphadenopathy. Trachea: Unremarkable. Lungs: Unremarkable as visualized. Bones/joints: Degenerative changes of the cervical spine. No acute fracture. Soft tissues: Unremarkable. No significant soft tissue swelling. IMPRESSION: Stable findings without evidence of progression/recurrence of disease. Electronically signed by: Rajesh Archuleta On 07/30/2019 15:52:20 PM
== END ==
LOC: M RAD 11:52
PROVIDERS: ATTEND Nurse Practitioner Family
DX: C76.0 Malignant neoplasm of head, face and neck (principal)
CPT/HCPCS: 70491; 71260; Q9967

== ENCOUNTER → 2019-11-08 | Outpatient (CLI) | payer MEDICARE, BC, OTHER ==
[~2019-11-08] MED LIST changes: -ISOVUE-370 76% 100ML VIAL (Q9967) As Ordered ONE
--- NOTE | 2019-11-08 11:50 | REP ---
REASON FOR EXAM: History of squamous cell carcinoma. COMPARISON: Multiple, the latest 10/27/2016. There are chronic right basilar changes status quo. There is a dual-chamber bipolar pacemaker device status quo. There is no change in the lung conde. There are no acute patchy parenchymal opacities or pleural effusions. The cardiomediastinal silhouette is unchanged. The heart is not enlarged. The osseous structures are stable and intact. Spinal degenerative changes are noted status quo. IMPRESSION: No evidence of acute cardiopulmonary disease or significant change compared to the prior exam with findings as described above. COMMENT: If clinical suspicious is high, due to the patient's history of head and neck carcinoma, then contrast-enhanced chest CT should be considered. Electronically Signed by Joshua Cruz DO 11/08/2019 12:11 P
== END ==
LOC: M RAD 10:27
PROVIDERS: ATTEND Internal Medicine Medical Oncology
DX: C10.9 Malignant neoplasm of oropharynx, unspecified (principal)

== ENCOUNTER → 2020-01-17 | Outpatient (REF) | payer MEDICARE, BC, OTHER ==
[2020-02-29 10:49] LABS: HEMOGLOBIN A1c 5.3 %
== END ==
LOC: M LAB REF 06:52
PROVIDERS: ATTEND Family Medicine
DX: R73.01 Impaired fasting glucose (principal); I10 Essential (primary) hypertension

== ENCOUNTER → 2020-01-25 | Outpatient (CLI) | payer MEDICARE, BC, OTHER ==
--- NOTE | 2020-02-14 13:34 | REP ---
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 COMPARISON: PET CT study from 01/28/2017. CT study of the chest from 01/25/2020. TECHNIQUE: 68 minutes following the intravenous injection of a 7.37 mCi dose of F18 FDG, whole body pet scintigraphy and CT scanning is performed from the skull base to the proximal thighs. PET CT FINDINGS: The head and neck soft tissues are unremarkable. No abnormal hypermetabolic uptake is seen. No abnormal hypermetabolic uptake is seen within the thorax. There is a small nonhypermetabolic right pleural effusion or pleural thickening area layering posteriorly. No abnormal hypermetabolic uptake is seen in the liver. Normal hepatic, splenic, gastrointestinal, and genitourinary distribution of FDG is seen in the abdomen and pelvis. No abnormal abdominal or pelvic uptake is appreciated. IMPRESSION: Unremarkable PET scintigraphy. No abnormal hypermetabolic uptake seen. Small amount of right pleural fluid. MTDD
== END ==
LOC: M PLARAD 10:00
PROVIDERS: ATTEND Internal Medicine Medical Oncology
DX: C01 Malignant neoplasm of base of tongue (principal)
CPT/HCPCS: 78815; A9552

== ENCOUNTER → 2020-02-25 | Outpatient (CLI) | payer MEDICARE, BC, OTHER | LOC: M PLALAB 10:16 | PROVIDERS: ATTEND Internal Medicine Medical Oncology | DX: R97.20 Elevated prostate specific antigen [PSA] (principal) ==

== ENCOUNTER → 2020-07-20 | Outpatient (CLI) | payer MEDICARE, BC, OTHER ==
[~2020-07-20] MED LIST changes: +GASTROGRAFIN SOLUTION 30ML (Q9963) As Ordered ONE; +ISOVUE-370 76% 100ML VIAL As Ordered ONE; +LISI10TA22 PO; -LISI10TA4 PO
--- NOTE | 2020-07-20 13:46 | REPVR ---
PROCEDURE INFORMATION: Exam: CT Neck With Contrast Exam date and time: 07/20/2020 12:44 PM Age: 74 years old Clinical indication: Condition or disease; Cancer; Other: Head and neck; Additional info: Head and neck cancer follow up TECHNIQUE: Imaging protocol: Computed tomography images of the neck with intravenous contrast. Radiation optimization: All CT scans at this facility use at least one of these dose optimization techniques: automated exposure control; mA and/or kV adjustment per patient size (includes targeted exams where dose is matched to clinical indication); or iterative reconstruction. Contrast material: ISOVUE 370; Contrast volume: 100 ml; Contrast route: INTRAVENOUS (IV); COMPARISON: PT PET/CT Skull/mid thigh 01/25/2020 11:54 AM FINDINGS: Orbital cavity: Bilateral prior cataract surgery. Nasopharynx: Unremarkable. Oropharynx: Unremarkable. No significant tonsillar enlargement. Hypopharynx: Unremarkable. Larynx: Unremarkable. Normal epiglottis. Retropharyngeal space: Unremarkable. Submandibular/Parotid glands: Normal. Glands are normal in size. Thyroid: Normal. No enlarged or calcified nodules. Lymph nodes: No significant lymphadenopathy. Trachea: Visualized trachea is unremarkable. Lungs: Please see the CT chest report of the same date for additional findings. Bones/joints: Mild C3-C4 anterolisthesis with severe right neural foraminal stenosis and moderate bilateral primary facet osteoarthritis, with fifteen mm right facet joint para-articular ossification (series 202, image 42). Moderate left C4-C5 primary facet osteoarthritis, with moderate neural foraminal stenosis. C5-6 degenerative disc disease with moderate spondylosis, bilateral severe neural foraminal stenosis. Mild C6 spondylosis, moderate left, severe right neural foraminal stenosis. Moderate left, severe right C7-T1 neural foraminal stenoses. No destructive bony process identified. Vasculature: Bilateral carotid atherosclerotic calcifications. Soft tissues: Unremarkable. No significant soft tissue swelling. IMPRESSION: 1. No evidence of soft tissue neck tumor recurrence/metastatic disease. 2. Please see the CT chest report of the same date for additional findings. Electronically signed by: Ronnie Brody On 07/20/2020 13:46:55 PM
--- NOTE | 2020-07-20 15:11 | REP ---
INDICATION: HEAD AND NECK CANCER FOLLOW UP. Squamous cell carcinoma of the base of the tongue. COMPARISON: Comparison CT abdomen pelvis May 26, 2013.. TECHNIQUE: Helical scanning is acquired and 3 mm axial images re-formatted. Coronal and sagittal MPR images are generated. The CT contrast enhancement dose is 100 mL of intravenous Isovue 370. FINDINGS: Digital preliminary medical operations supervisor radiograph demonstrates an unremarkable bowel gas pattern. The liver and the spleen remain normal in size homogeneous in texture. No focal liver lesion is is seen. No abnormality is noted in the gallbladder. The pancreas is normal in appearance. Normal adrenal glands are seen bilaterally. The kidneys enhance symmetrically. No hydronephrosis, mass or calculus is seen. There is a small cyst in the upper pole the right kidney. A tiny subcortical cyst is seen in the lower pole on the left. These are best seen on delayed postcontrast acquisition. No retroperitoneal mass or adenopathy is observed. There is a focal size area of scarring and indentation of the anterior abdominal wall in to the left of midline in the epigastric region related to previous gastrostomy tube. No abdominal wall defect is seen. Prostate is enlarged and contains some dystrophic calcifications. Urinary bladder and seminal vesicles are unremarkable. A normal appendix is seen containing a small calcification. No inflammatory changes. Bone window settings show degenerative spondylosis. No bony destructive lesion. IMPRESSION: There is no evidence of metastatic disease, mass or adenopathy. <Electronically signed by Jong Hernandez > 07/20/20 [id number]
--- NOTE | 2020-07-20 15:23 | REP ---
INDICATION: HEAD AND NECK CANCER FOLLOW UP. 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 COMPARISON: Comparison CT study July 30, 2019.. TECHNIQUE: Helical scanning is acquired following the intravenous injection of 100 mL of Isovue 370. 3 mm axial images re-formatted. Coronal and sagittal MPR images are provided. FINDINGS: Preliminary digital indoor landscaper/gardener radiograph demonstrates stable pleuroparenchymal scarring in the right lung base and a bipolar pacemaker in the heart. On axial CT images, there is no evidence of hilar or mediastinal mass or adenopathy. There is vascular calcification in the coronary artery distribution. Normal adrenal glands are seen. The visualized upper abdominal structures are unremarkable. There is postsurgical change in the right lung apex and right base unchanged. There is some chronic stable pleural thickening in the right base posteriorly. No pulmonary mass, nodule, or new infiltrate is seen. There is a granulomatous calcification in the lingula on the left laterally. No bony destructive lesion is appreciated. No supraclavicular or axillary mass or adenopathy is appreciated. IMPRESSION: Chronic stable pleuroparenchymal fibrotic changes on the right. Pacemaker. No evidence of intrathoracic mass or adenopathy <Electronically signed by Jong Hernandez > 07/20/20 [id number]
== END ==
LOC: M RAD 11:02
PROVIDERS: ATTEND Internal Medicine Medical Oncology
DX: C01 Malignant neoplasm of base of tongue (principal); J84.10 Pulmonary fibrosis, unspecified; Z95.0 Presence of cardiac pacemaker
CPT/HCPCS: 70491; 71260; 74177; Q9963; Q9967

== ENCOUNTER → 2021-01-18 | Outpatient (CLI) | payer MEDICARE, BC, OTHER ==
[~2021-01-18] MED LIST changes: +AVOD0.5C PO; -GASTROGRAFIN SOLUTION 30ML (Q9963) As Ordered ONE; -ISOVUE-370 76% 100ML VIAL As Ordered ONE; +OMEP40CA4 PO; -OMEP40CA97 PO; +zioptan OU
--- NOTE | 2021-01-18 09:06 | REP ---
INDICATION: OROPHARYNGEAL SQUAMOUS CELL CA BASE OF TONGUE. COMPARISON: 11/08/2019 TECHNIQUE: Two views FINDINGS: The lungs are emphysematous. Postbiopsy changes after right thoracotomy and lobectomy. No evidence of active parenchymal disease in the lungs. Dual pacing leads in place. Heart not enlarged. No failure or effusion. No interval change compared to the previous study. IMPRESSION: Emphysema. No active process. No interval change. <Electronically signed by Milad Velez > 01/18/21 [id number]
== END ==
LOC: M RAD 08:47
PROVIDERS: ATTEND Internal Medicine Medical Oncology
DX: C01 Malignant neoplasm of base of tongue (principal)

== ENCOUNTER → 2021-02-13 | Outpatient (CLI) | payer MEDICARE, BC, OTHER ==
[~2021-02-13] MED LIST changes: +LIDOCAINE 1% MDV 20ML VIAL As Ordered ONE
[2021-02-13 08:18] LABS: BASO % 0.7 % (0.0-1.0); EOS # 0.2 10^3/uL (0.0-0.5); EOS % 4.1 % (0.0-3.0); HEMATOCRIT 51.7 % (42.0-52.0); HEMOGLOBIN 17.3 g/dl (13.5-17.5); LYMPH # 1.1 10^3/uL (1.5-5.0); LYMPH % 20.9 % (24.0-44.0); MEAN CORPUSCULAR HEMOGLOBIN 32.2 pg (27.0-33.0); MEAN CORPUSCULAR HGB CONC 33.5 g/dl (32.0-36.5); MEAN CORPUSCULAR VOLUME 96.3 fl (80.0-96.0); MONO # 0.7 10^3/uL (0.0-0.8); MONO % 12.1 % (2.0-8.0); NEUTROPHILS # 3.3 10^3/uL (1.5-8.5); NEUTROPHILS % 61.8 % (36.0-66.0); PLATELET COUNT, AUTOMATED 159 10^3/uL (150-450); RED BLOOD COUNT 5.37 10^6/uL (4.30-6.10); WHITE BLOOD COUNT 5.4 10^3/uL (4.0-10.0)
[2021-02-13 10:25] VITALS: BP 148/72
--- NOTE | 2021-02-13 16:36 | REP ---
INDICATION: TONGUE CA. COMPARISON: None. TECHNIQUE: The procedure was performed under the direct supervision of Dr. Sierra. The risks and benefits of the procedure were explained to the patient and informed consent was obtained. The left iliac bone was localized using CT guidance. The skin was prepped and draped in a sterile fashion. 5 mL of 1% lidocaine was used as a local anesthetic. Using CT guidance an 11 gauge bone marrow biopsy system was inserted. 10 mL of marrow fluid was withdrawn. One core sample was then obtained. The patient tolerated the procedure well and there were no immediate complications. After the appropriate amount to monitor convalescence the patient was discharged from the department. FINDINGS: None IMPRESSION: CT-guided left iliac bone marrow biopsy. <Electronically signed by Ed Gipson > 02/13/21 1630 <Electronically signed by Fabian Sierra > 02/13/21 [id number]
== END ==
LOC: M IRPRO 07:52
PROVIDERS: ATTEND Internal Medicine Medical Oncology
DX: C01 Malignant neoplasm of base of tongue (principal)

== ENCOUNTER → 2021-02-14 | Outpatient (CLI) | payer MEDICARE, BC, OTHER ==
[~2021-02-14] MED LIST changes: -LIDOCAINE 1% MDV 20ML VIAL As Ordered ONE
[2021-02-14 11:54] LABS: HEMATOCRIT 51.4 % (42.0-52.0); HEMOGLOBIN 17.3 g/dl (13.5-17.5); MEAN CORPUSCULAR HEMOGLOBIN 32.5 pg (27.0-33.0); MEAN CORPUSCULAR HGB CONC 33.7 g/dl (32.0-36.5); MEAN CORPUSCULAR VOLUME 96.6 fl (80.0-96.0); PLATELET COUNT, AUTOMATED 155 10^3/uL (150-450); RED BLOOD COUNT 5.32 10^6/uL (4.30-6.10)
[2021-02-14 12:26] LABS: HEMOGLOBIN A1c 5.2 %
[2021-02-14 12:27] LABS: ALBUMIN 3.7 GM/DL (3.2-5.2); ALT/SGPT 25 U/L (12-78); BILIRUBIN,TOTAL 0.5 MG/DL (0.2-1.0); BLOOD UREA NITROGEN 10 MG/DL (7-18); CALCIUM LEVEL 8.7 MG/DL (8.8-10.2); CARBON DIOXIDE LEVEL 31 MEQ/L (21-32); CHLORIDE LEVEL 106 MEQ/L (98-107); CHOLESTEROL LEVEL 220 MG/DL (<200); CHOLESTEROL RISK RATIO 4.888 (<5); CREATININE FOR GFR 1.05 MG/DL (0.70-1.30); GLOMERULAR FILTRATION RATE > 60.0 (>42); GLUCOSE, FASTING 114 MG/DL (70-100); HDL CHOLESTEROL 45 MG/DL (>40); LDL CHOLESTEROL 155 MG/DL (<100); NON-HDL-C 175 MG/DL; POTASSIUM SERUM 4.5 MEQ/L (3.5-5.1); PROSTATIC SPECIFIC AG MONITOR 0.63 NG/ML (< 4.00); SODIUM LEVEL 140 MEQ/L (136-145); TOTAL PROTEIN 6.5 GM/DL (6.4-8.2); TRIGLYCERIDES LEVEL 99 MG/DL (<150)
== END ==
LOC: M PLALAB 08:22
PROVIDERS: ATTEND Family Medicine
DX: N40.0 Benign prostatic hyperplasia without lower urinary tract symptoms (principal); E78.00 Pure hypercholesterolemia, unspecified

== ENCOUNTER → 2021-04-16 | Outpatient (CLI) | payer MEDICARE, BC, OTHER ==
[2021-04-16 13:06] LABS: BASO % 0.4 % (0.0-1.0); EOS # 0.3 10^3/uL (0.0-0.5); EOS % 3.8 % (0.0-3.0); HEMATOCRIT 53.3 % (42.0-52.0); HEMOGLOBIN 17.4 g/dl (13.5-17.5); LYMPH # 1.4 10^3/uL (1.5-5.0); LYMPH % 17.9 % (24.0-44.0); MEAN CORPUSCULAR HEMOGLOBIN 32.1 pg (27.0-33.0); MEAN CORPUSCULAR HGB CONC 32.6 g/dl (32.0-36.5); MEAN CORPUSCULAR VOLUME 98.3 fl (80.0-96.0); MONO # 0.9 10^3/uL (0.0-0.8); MONO % 10.7 % (2.0-8.0); NEUTROPHILS # 5.3 10^3/uL (1.5-8.5); NEUTROPHILS % 66.7 % (36.0-66.0); PLATELET COUNT, AUTOMATED 183 10^3/uL (150-450); RED BLOOD COUNT 5.42 10^6/uL (4.30-6.10)
[2021-04-16 13:32] LABS: ALBUMIN 3.8 GM/DL (3.2-5.2); ALT/SGPT 25 U/L (12-78); BILIRUBIN,TOTAL 0.5 MG/DL (0.2-1.0); BLOOD UREA NITROGEN 20 MG/DL (7-18); CALCIUM LEVEL 9.1 MG/DL (8.8-10.2); CARBON DIOXIDE LEVEL 29 MEQ/L (21-32); CHLORIDE LEVEL 109 MEQ/L (98-107); CREATININE FOR GFR 1.08 MG/DL (0.70-1.30); FERRITIN 129 NG/ML (26-388); GLOMERULAR FILTRATION RATE > 60.0 (>42); GLUCOSE, FASTING 112 MG/DL (70-100); IRON (FE) 67 UG/DL (65-175); PERCENT SATURATION 26.3 % (19.7-50.0); POTASSIUM SERUM 4.5 MEQ/L (3.5-5.1); SODIUM LEVEL 141 MEQ/L (136-145); TOTAL IRON BINDING CAPACITY 255 UG/DL (250-450); TOTAL PROTEIN 6.6 GM/DL (6.4-8.2)
[2021-04-16 13:40] LABS: TOTAL 25(OH) VITAMIN D 67.6 NG/ML (30.0-100.0)
== END ==
LOC: M PLALAB 09:55
PROVIDERS: ATTEND Internal Medicine Medical Oncology
DX: Z85.9 Personal history of malignant neoplasm, unspecified (principal); Z79.899 Other long term (current) drug therapy

== ENCOUNTER → 2021-05-15 | Outpatient (CLI) | payer MEDICARE, BC, OTHER ==
[~2021-05-15] MED LIST changes: +E-Z-GAS II EFFERVESCENT PACKET (SODIUM BICARB./CITRIC ACID/SIMETHICONE) As Ordered ONE; +E-Z-HD 98% w/w 340GM SUSP BTL As Ordered ONE; +E-Z-PAQUE 96% w/w SUSP 176GM BTL As Ordered ONE; +ISOVUE-370 76% 100ML VIAL As Ordered ONE
--- NOTE | 2021-05-15 09:00 | REPVR ---
PROCEDURE INFORMATION: Exam: CT Neck With Contrast Exam date and time: 05/15/2021 8:21 AM Age: 75 years old Clinical indication: Mass, lump, or swelling in neck; Posterior; Additional info: [place] marti of base of tongue- XR after TECHNIQUE: Imaging protocol: Computed tomography images of the neck with contrast. Radiation optimization: All CT scans at this facility use at least one of these dose optimization techniques: automated exposure control; mA and/or kV adjustment per patient size (includes targeted exams where dose is matched to clinical indication); or iterative reconstruction. Contrast material: ISO 370; Contrast volume: 75 ml; Contrast route: INTRAVENOUS (IV); COMPARISON: 1. CT Neck with contrast 07/20/2020 12:43 PM 2. PT PET/CT Skull/mid thigh 01/25/2020 11:54:24 AM FINDINGS: Nasopharynx: Unremarkable. Oropharynx: Mild loss of volume at the base of the left tongue is presumably related to post treatment changes. There is no longer post radiation epiglottic soft tissue thickening. Hypopharynx: Unremarkable. Larynx: See "Oropharynx" finding. Retropharyngeal space: Unremarkable. Submandibular/Parotid glands: Normal. Glands are normal in size. Thyroid: The thyroid gland is normal. Lymph nodes: Unremarkable. No lymphadenopathy. Trachea: Visualized trachea is unremarkable. Lungs: There is chronic scarring at the right apex which may reflect previous surgery. Bones/joints: The spine demonstrates moderate degenerative changes at multiple levels. There is multilevel foraminal compromise. The AP diameter of the canal is narrowed to about 7 mm at C5-C6 and MRI would be appropriate if there are long tract symptoms. Vasculature: The vasculature demonstrates diffuse moderate atherosclerotic calcification. There is a dominant right vertebral artery with no evidence of dissection but there appears to be severe stenosis at the origin associated with fatty calcific plaque on coronal image 45. 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 Soft tissues: Unremarkable. No significant soft tissue swelling. IMPRESSION: 1. Mild loss of volume at the base of the left tongue is presumably related to post treatment changes. There is no longer post radiation epiglottic soft tissue thickening. 2. There is multilevel foraminal compromise. The AP diameter of the canal is narrowed to about 7 mm at C5-C6 and MRI would be appropriate if there are long tract symptoms. 3. There is chronic scarring at the right apex which may reflect previous surgery. 4. There is a dominant right vertebral artery with no evidence of dissection but there appears to be severe stenosis at the origin associated with fatty calcific plaque on coronal image 45. 5. 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 Electronically signed by: Dennys Krishnan On 05/15/2021 09:00:13 AM
--- NOTE | 2021-05-15 18:09 | REP ---
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 COMPARISON: CT neck with contrast dated 05/15/2021 TECHNIQUE: This procedure was performed by ANURAG Cruz, under the direct supervision of Dr. Sierra. Images were reviewed with Dr. Sierra prior to dictation. Liquid barium and gas producing crystals were given in the erect position, as well as liquid barium in the prone oblique position in order to perform a double contrast esophagram examination. 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 The superior mediastinal structures are midline. The heart size is within normal limits. The lungs are clear. The oral and pharyngeal stages of deglutition were unremarkable. Esophageal transport is prompt and efficient and there is no evidence of esophagitis, stricture, or mucosal ring. There is some minor tertiary contractions seen on this examination. There is no evidence of a hiatal hernia. Gastroesophageal reflux was not observed on this examination. IMPRESSION: Minor tertiary contractions otherwise unremarkable esophagram 0.6 minutes of fluoroscopy time was utilized for this procedure. Some fluoroscopic images are performed with last image hold technology. These images require no additional radiation. <Electronically signed by Stacia Friedman > 05/15/21 [id number] <Electronically signed by Fabian Sierra > 05/15/21 [id number]
== END ==
LOC: M RAD 08:02
PROVIDERS: ATTEND Otolaryngology
DX: C01 Malignant neoplasm of base of tongue (principal)
CPT/HCPCS: 70491; 74220; Q9967

== ENCOUNTER → 2021-07-23 | Outpatient (CLI) | payer MEDICARE, BC, OTHER ==
[~2021-07-23] MED LIST changes: +AVOD0.5C; -E-Z-GAS II EFFERVESCENT PACKET (SODIUM BICARB./CITRIC ACID/SIMETHICONE) As Ordered ONE; -E-Z-HD 98% w/w 340GM SUSP BTL As Ordered ONE; -E-Z-PAQUE 96% w/w SUSP 176GM BTL As Ordered ONE; +FAMO40TA3; -ISOVUE-370 76% 100ML VIAL As Ordered ONE
== END ==
LOC: M PLARAD 08:48
PROVIDERS: ATTEND Internal Medicine Medical Oncology
DX: C02.0 Malignant neoplasm of dorsal surface of tongue (principal)
CPT/HCPCS: 78815; A9552

== ENCOUNTER → 2021-07-27 | Outpatient (CLI) | payer MEDICARE, BC, OTHER | LOC: M LABSMTC 09:10 | PROVIDERS: ATTEND Anesthesiology | DX: Z01.818 Encounter for other preprocedural examination (principal); Z11.52 Encounter for screening for COVID-19 ==

== ENCOUNTER → 2021-10-23 | Outpatient (CLI) | payer MEDICARE, BC, OTHER ==
[~2021-10-23] MED LIST changes: -FAMO40TA3; +FAMO40TA3 PO
[2021-10-23 13:52] LABS: BASO # 0.1 10^3/uL (0.0-0.2); BASO % 0.8 % (0.0-1.0); EOS # 0.1 10^3/uL (0.0-0.5); EOS % 1.6 % (0.0-3.0); HEMATOCRIT 50.6 % (42.0-52.0); HEMOGLOBIN 17.4 g/dl (13.5-17.5); LYMPH # 1.3 10^3/uL (1.5-5.0); LYMPH % 20.9 % (24.0-44.0); MEAN CORPUSCULAR HEMOGLOBIN 33.1 pg (27.0-33.0); MEAN CORPUSCULAR HGB CONC 34.4 g/dl (32.0-36.5); MEAN CORPUSCULAR VOLUME 96.4 fl (80.0-96.0); MONO # 0.7 10^3/uL (0.0-0.8); MONO % 11.3 % (2.0-8.0); NEUTROPHILS % 65.1 % (36.0-66.0); PLATELET COUNT, AUTOMATED 183 10^3/uL (150-450); RED BLOOD COUNT 5.25 10^6/uL (4.30-6.10); WHITE BLOOD COUNT 6.1 10^3/uL (4.0-10.0)
[2021-10-23 14:23] LABS: ALBUMIN 4.2 GM/DL (3.2-5.2); ALT/SGPT 29 U/L (12-78); BILIRUBIN,TOTAL 0.7 MG/DL (0.2-1.0); BLOOD UREA NITROGEN 14 MG/DL (7-18); CALCIUM LEVEL 9.6 MG/DL (8.8-10.2); CARBON DIOXIDE LEVEL 32 MEQ/L (21-32); CHLORIDE LEVEL 104 MEQ/L (98-107); CREATININE FOR GFR 1.18 MG/DL (0.70-1.30); GLOMERULAR FILTRATION RATE > 60.0 (>42); GLUCOSE, FASTING 124 MG/DL (70-100); POTASSIUM SERUM 4.7 MEQ/L (3.5-5.1); SODIUM LEVEL 139 MEQ/L (136-145); TOTAL PROTEIN 7.1 GM/DL (6.4-8.2)
== END ==
LOC: M PLALAB 10:14
PROVIDERS: ATTEND Family Medicine
DX: Z01.818 Encounter for other preprocedural examination (principal)

== ENCOUNTER → 2021-11-03 | Outpatient (CLI) | payer MEDICARE, BC, OTHER ==
[~2021-11-03] MED LIST changes: +OMEP40CA5 PO
== END ==
LOC: M LABSMTC 11:43
PROVIDERS: ATTEND Anesthesiology
DX: Z20.822 Contact with and (suspected) exposure to COVID-19 (principal)

== ENCOUNTER 2021-11-08 09:26 | Day surgery (SDC) | payer MEDICARE, BC, OTHER ==
[~2021-11-08] VITALS: Ht 182.9 cm; Wt 81.4 kg
[~2021-11-08 09:26] MED LIST changes: +dexameTHASONE 4 MG/ML 1ML VIAL (J1100 PER 1MG) IV ONE
[2021-11-08] MEDS ORDERED: LR 1,000 ML IV SCH ×2 (09:35→13:05)
[2021-11-08] MEDS ORDERED: INSULIN LISPRO (NovoLOG) PER UNIT SC PRN (09:35)
[2021-11-08] MEDS ORDERED: EPINEPHrine 1MG/ML INJ 30ML MD-VIAL As Ordered ONE (10:33)
[2021-11-08] MEDS ORDERED: ROCURONIUM BROMIDE 50 MG/5 ML VIAL As Ordered ONE (10:54)
[2021-11-08] MEDS ORDERED: fentaNYL 100 MCG/2 ML INJECTION As Ordered ONE (11:07)
[2021-11-08] MEDS ORDERED: LIDOCAINE 2% 100MG/5ML SDV (FOR ANES.) As Ordered ONE (11:09)
[2021-11-08] MEDS ORDERED: SUCCINYLCHOLINE 100 MG/5 ML SYRINGE (J0330) As Ordered ONE (11:09)
[2021-11-08] MEDS ORDERED: propofoL 200 MG/20 ML VIAL As Ordered ONE (11:09)
[2021-11-08] MEDS ORDERED: dexameTHASONE 4 MG/ML 1ML VIAL (J1100 PER 1MG) As Ordered ONE (11:11)
[2021-11-08] MEDS ORDERED: ONDANSETRON 4MG/2ML VIAL As Ordered ONE (11:11)
[2021-11-08] MEDS ORDERED: SUGAMMADEX SODIUM 500 MG/5 ML VIAL (BRIDION) As Ordered ONE (12:38)
[2021-11-08] MEDS ORDERED: fentaNYL 100 MCG/2 ML INJECTION IV PRN (13:05)
[2021-11-08] MEDS ORDERED: oxyCODONE 5MG TAB PO PRN (13:05)
[2021-11-08] MEDS ORDERED: MORPHINE 2 MG/ML 1ML VIAL IV PRN (13:05)
[2021-11-08 14:15] VITALS: BP 190/84
== END 2021-11-08 14:15 | disposition home or self-care (01) ==
LOC: M SDC 09:26
PROVIDERS: ATTEND Otolaryngology
DX: C02.9 Malignant neoplasm of tongue, unspecified (principal); J31.1 Chronic nasopharyngitis; I10 Essential (primary) hypertension; E78.5 Hyperlipidemia, unspecified; K21.9 Gastro-esophageal reflux disease without esophagitis; L40.9 Psoriasis, unspecified; M19.90 Unspecified osteoarthritis, unspecified site; M32.9 Systemic lupus erythematosus, unspecified; Z95.0 Presence of cardiac pacemaker; Z92.21 Personal history of antineoplastic chemotherapy; Z92.3 Personal history of irradiation; Z85.118 Personal history of other malignant neoplasm of bronchus and lung; Z79.899 Other long term (current) drug therapy
CPT/HCPCS: 31237; 31536; 88305; 88341; 88342; J0171; J0330; J1100; J2405; J3010

== ENCOUNTER → 2021-12-18 | Outpatient (CLI) | payer MEDICARE, BC, OTHER ==
[~2021-12-18] MED LIST changes: +ISOVUE-370 76% 100ML VIAL As Ordered ONE; -dexameTHASONE 4 MG/ML 1ML VIAL (J1100 PER 1MG) IV ONE
== END ==
LOC: M RAD 14:08
PROVIDERS: ATTEND Otolaryngology
DX: Z85.810 Personal history of malignant neoplasm of tongue (principal)
CPT/HCPCS: 70491; Q9967

== ENCOUNTER → 2022-01-07 | Outpatient (CLI) | payer MEDICARE, BC, OTHER ==
[~2022-01-07] MED LIST changes: -ISOVUE-370 76% 100ML VIAL As Ordered ONE
[2022-01-07 11:35] LABS: BASO # 0.1 10^3/uL (0.0-0.2); BASO % 0.9 % (0.0-1.0); EOS # 0.2 10^3/uL (0.0-0.5); EOS % 3.7 % (0.0-3.0); HEMATOCRIT 51.4 % (42.0-52.0); HEMOGLOBIN 17.3 g/dl (13.5-17.5); LYMPH # 1.1 10^3/uL (1.5-5.0); LYMPH % 19.8 % (24.0-44.0); MEAN CORPUSCULAR HEMOGLOBIN 33.5 pg (27.0-33.0); MEAN CORPUSCULAR HGB CONC 33.7 g/dl (32.0-36.5); MEAN CORPUSCULAR VOLUME 99.4 fl (80.0-96.0); MONO # 0.7 10^3/uL (0.0-0.8); MONO % 11.6 % (2.0-8.0); NEUTROPHILS # 3.6 10^3/uL (1.5-8.5); NEUTROPHILS % 63.6 % (36.0-66.0); PLATELET COUNT, AUTOMATED 163 10^3/uL (150-450); RED BLOOD COUNT 5.17 10^6/uL (4.30-6.10); WHITE BLOOD COUNT 5.7 10^3/uL (4.0-10.0)
[2022-01-07 11:43] LABS: BLOOD UREA NITROGEN 13 MG/DL (7-18); COMPLEMENT C3 92 MG/DL (90-180); COMPLEMENT C4 25 MG/DL (10-40); CREATININE FOR GFR 1.18 MG/DL (0.70-1.30); GLOMERULAR FILTRATION RATE > 60.0 (>42)
[2022-01-07 12:10] LABS: ERYTHROCYTE SEDIMENTATION RATE 1 mm/hr (0-20)
[2022-01-10 13:07] LABS: ANTI DS-DNA AB Negative (Negative)
== END ==
LOC: M PLALAB 08:41
PROVIDERS: ATTEND Internal Medicine Rheumatology
DX: M32.10 Systemic lupus erythematosus, organ or system involvement unspecified (principal)

== ENCOUNTER → 2022-07-22 | Outpatient (CLI) | payer MEDICARE, BC, OTHER ==
[~2022-07-22] MED LIST changes: +ATOR1TAB21
== END ==
LOC: M PLARAD 07:35
PROVIDERS: ATTEND Internal Medicine Medical Oncology
DX: C20 Malignant neoplasm of rectum (principal); C78.01 Secondary malignant neoplasm of right lung
CPT/HCPCS: 78815; A9552

== ENCOUNTER → 2022-10-21 | Outpatient (CLI) | payer MEDICARE, BC, OTHER | LOC: M PLARAD 07:26 | PROVIDERS: ATTEND Internal Medicine Hematology & Oncology | DX: C76.0 Malignant neoplasm of head, face and neck (principal) | CPT/HCPCS: 78815; A9552 ==

== ENCOUNTER → 2023-04-10 | Outpatient (CLI) | payer MEDICARE, BC, OTHER | LOC: M PLAIMG 11:03 | PROVIDERS: ATTEND Physician Assistant | DX: M27.2 Inflammatory conditions of jaws (principal) ==

== ENCOUNTER → 2023-10-24 | Outpatient (CLI) | payer MEDICARE, BC ==
[~2023-10-24] MED LIST changes: +AZAT50TA37; +GASTROGRAFIN SOLUTION 30ML As Ordered ONE; +ISOVUE-370 76% 100ML VIAL As Ordered ONE
== END ==
LOC: M RAD 14:47
PROVIDERS: ATTEND Internal Medicine Medical Oncology
DX: C02.9 Malignant neoplasm of tongue, unspecified (principal)
CPT/HCPCS: 70491; 71260; 74177; Q9963; Q9967

== ENCOUNTER → 2024-01-28 | Outpatient (CLI) | payer MEDICARE, BC ==
[~2024-01-28] MED LIST changes: -ATOR1TAB21; +ATOR1TAB21 PO; -AZAT50TA37; +AZAT50TA37 PO; -GASTROGRAFIN SOLUTION 30ML As Ordered ONE; +TAFL1DRO6 OU
== END ==
LOC: M RAD 09:30
PROVIDERS: ATTEND Internal Medicine Medical Oncology
DX: R91.1 Solitary pulmonary nodule (principal)
CPT/HCPCS: 71260; Q9967

== ENCOUNTER → 2024-07-30 | Outpatient (CLI) | payer MEDICARE, OTHER ==
[~2024-07-30] MED LIST changes: -ISOVUE-370 76% 100ML VIAL As Ordered ONE; +ROSU10TA61
[2024-07-30 13:55] LABS: BLOOD UREA NITROGEN 12 MG/DL (9-23); CREATININE FOR GFR 1.15 MG/DL (0.70-1.30); GLOMERULAR FILTRATION RATE > 60.0 (>42)
== END ==
LOC: M PLALAB 09:15
PROVIDERS: ATTEND Physician Assistant Medical
DX: R22.1 Localized swelling, mass and lump, neck (principal)

== ENCOUNTER → 2024-08-06 | Outpatient (CLI) | payer MEDICARE, BC ==
[~2024-08-06] MED LIST changes: +ISOVUE-370 76% 100ML VIAL As Ordered ONE
== END ==
LOC: M RAD 07:17
PROVIDERS: ATTEND Physician Assistant Medical
DX: R22.1 Localized swelling, mass and lump, neck (principal)
CPT/HCPCS: 70491; Q9967

== ENCOUNTER → 2024-10-20 | Outpatient (CLI) | payer MEDICARE, BC ==
[~2024-10-20] MED LIST changes: +AMLO2.5T3
== END ==
LOC: M RAD 09:45
PROVIDERS: ATTEND Specialist
DX: R91.1 Solitary pulmonary nodule (principal)
CPT/HCPCS: 71260; Q9967

== ENCOUNTER → 2025-01-24 | Outpatient (CLI) | payer MEDICARE, BC ==
[~2025-01-24] MED LIST changes: -ISOVUE-370 76% 100ML VIAL As Ordered ONE; +MYCO500T
== END ==
LOC: M PLAIMG 13:41
PROVIDERS: ATTEND Physician Assistant Medical
DX: R63.4 Abnormal weight loss (principal); Z95.0 Presence of cardiac pacemaker; J98.4 Other disorders of lung

== ENCOUNTER → 2025-03-17 | Outpatient (CLI) | payer MEDICARE, BC ==
[~2025-03-17] MED LIST changes: +CLEO300C2 PO
[2025-03-17 15:09] LABS: CREATININE FOR GFR 0.94 MG/DL (0.70-1.30); GLOMERULAR FILTRATION RATE 83.0 (>42)
== END ==
LOC: M PLALAB 11:14
PROVIDERS: ATTEND Otolaryngology
DX: C01 Malignant neoplasm of base of tongue (principal)

== ENCOUNTER 2025-03-21 10:52 | Emergency (ER) | payer MEDICARE, BC ==
[~2025-03-21] VITALS: Ht 182.9 cm; Wt 73.9 kg
[~2025-03-21 10:52] MED LIST changes: -CLEO300C2 PO
[2025-03-21 11:57] LABS: PLATELET COUNT, AUTOMATED 182 10^3/uL (150-450)
[2025-03-21 12:30] LABS: CALCIUM LEVEL 9.2 MG/DL (8.3-10.6); CARBON DIOXIDE LEVEL 33.0 MMOL/L (20-31); CHLORIDE LEVEL 101.0 MMOL/L (98-107); CREATININE FOR GFR 0.86 MG/DL (0.70-1.30); GLOMERULAR FILTRATION RATE 88.6 (>42); POTASSIUM SERUM 4.4 MMOL/L (3.5-5.1); SODIUM LEVEL 142.0 MMOL/L (136-145)
[2025-03-21] MEDS ORDERED: ISOVUE-370 76% 100 ML VIAL As Ordered ONE (12:37)
[2025-03-21] MEDS ORDERED: CLEO300C2 PO (13:36)
[2025-03-21 13:49] VITALS: BP 161/81; TEMP 97.9; O2SAT 99
== END 2025-03-21 13:50 | disposition home or self-care (01) ==
LOC: M ED 10:52
DX: L03.211 Cellulitis of face (principal); I10 Essential (primary) hypertension; C34.90 Malignant neoplasm of unspecified part of unspecified bronchus or lung; Z79.899 Other long term (current) drug therapy
CPT/HCPCS: 36415; 70487; 80048; 85027; 99284; Q9967

== ENCOUNTER → 2025-03-25 | Outpatient (CLI) | payer MEDICARE, BC ==
[~2025-03-25] MED LIST changes: +CLEO300C2 PO; +ISOVUE-370 76% 100 ML VIAL ONE
== END ==
LOC: M PLAIMG 09:51
PROVIDERS: ATTEND Otolaryngology
DX: R22.1 Localized swelling, mass and lump, neck (principal); M48.02 Spinal stenosis, cervical region
CPT/HCPCS: 70491; Q9967